=== PATIENT | male | born 1955 | race Caucasian/White ===

== ENCOUNTER 2024-05-30 06:35 | Outpatient (CLI) | payer MEDICARE, BC, SELFPAY | END 2024-05-30 06:36 | disposition home or self-care (01) | LOC: INJ CL 06:39 | PROVIDERS: PCP Family Medicine; Visit Provider Family Medicine | DX: M54.16 Radiculopathy, lumbar region (principal); M51.36 Other intervertebral disc degeneration, lumbar region | CPT/HCPCS: 62323; J0702; Q9966 ==

== ENCOUNTER 2024-11-18 09:46 | Outpatient (CLI) | payer MEDICARE, BC, SELFPAY ==
--- OUTSIDE RECORDS SUMMARY | 2024-11-13 11:37 | XMS_ITS | Encounter Summary ---
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 This section includes the names of all active insurance providers for the patient. Insurance Provider Type of Coverage Plan Name Start of Policy Coverage End of Policy Coverage Group Number Member ID Insurance Provider's Telephone Number Policy Britton's Name Patient's Relationship to Policy Britton [facility] (WNR) MEDICARE ADVANTAGE [facility] (WNR) Sep 12, 2014 [id number] [phone] Adam BHATTI PATIENT Selected Encounter This section includes the information on record at NH for the Encounter. Date/Time Encounter Type Encounter Description Reason Pro vider Source Jun 12, 2024 03:33 PM Outpatient Encounter COMMUNITY CARE CONSULT IHE Encounter Template Text not used by NH Social History: Smoking Status (Most current) and Tobacco Use (All prior to encounter date) This section includes the most current, and the historical, smoking and tobacco- related health factors from the NH facility where the Encounter took place. Current Smoking Status This section includes the most current smoking, or tobacco-related health factor, from the NH facility where the Encounter took place. Date/Time Current Smoking Status Comment Billy gonzalez Jan 08, 2024 10:00 AM VA-TOBACCO USE DECLINED TO ANSWE R [facility] Tobacco Use History This section includes a history of the smoking, or tobacco-related health factors, that were collected on or before the date of the Encounter. The data comes from the [place] facility where the Encounter took place. Date/Time Smoking Status/Tobacco Use Comment F acility Jan 09, 2023 10:30 AM VA-TOBACCO USE DECLINED TO ANSWE R [facility] Jan 05, 2022 02:00 PM VA-TOBACCO USE > 1 5 LESS THAN 30 YEARS [facility] Jan 05, 2022 02:00 PM VA-TOBACCO USE ADVICE [facility] Jan 05, 2022 02:00 PM VA-TOBACCO USE HEALTH COACH NO [facility] Jan 05, 2022 02:00 PM VA-TOBACCO USE MED NO [facility] Jan 05, 2022 02:00 PM VA-TOBACCO USE WI 30 MIN OF WAKE UP [facility] Jan 05, 2022 02:00 PM VA-TOBACCO USER EVERY DAY [facility] Dec 29, 2020 10:00 AM VA-TOBACCO USE > 1 5 LESS THAN 30 YEARS [facility] Dec 29, 2020 10:00 AM VA-TOBACCO USE ADVICE [facility] Dec 29, 2020 10:00 AM VA-TOBACCO USE HEALTH COACH YES [facility] Dec 29, 2020 10:00 AM VA-TOBACCO USE MED NO [facility] Dec 29, 2020 10:00 AM VA-TOBACCO USE WI 30 MIN OF WAKE UP [facility] Dec 29, 2020 10:00 AM VA-TOBACCO USER EVERY DAY [facility] Dec 09, 2019 08:18 AM VA-TOBACCO USE 30 YEARS OR MORE [facility] Dec 09, 2019 08:18 AM VA-TOBACCO USE ADVICE [facility] Dec 09, 2019 08:18 AM VA-TOBACCO USE HEALTH COACH NO [facility] Dec 09, 2019 08:18 AM VA-TOBACCO USE MED NO [facility] Dec 09, 2019 08:18 AM VA-TOBACCO USE WI 30 MIN OF WAKE UP [facility] Dec 09, 2019 08:18 AM VA-TOBACCO USER EVERY DAY [facility] Dec 09, 2018 08:24 AM VA-TOBACCO USE 30 YEARS OR MORE [facility] Dec 09, 2018 08:24 AM VA-TOBACCO USE ADVICE [facility] Dec 09, 2018 08:24 AM VA-TOBACCO USE HEALTH COACH NO [facility] Dec 09, 2018 08:24 AM VA-TOBACCO USE MED NO [facility] Dec 09, 2018 08:24 AM VA-TOBACCO USE WI 30 MIN OF WAKE UP [facility] Dec 09, 2018 08:24 AM VA-TOBACCO USER EVERY DAY [facility] Dec 11, 2017 09:35 AM CURRENT TOBACCO USER [facility] Nov 22, 2016 12:56 PM CURRENT TOBACCO USER [facility] Oct 29, 2015 09:51 AM CURRENT TOBACCO USER [facility] Oct 14, 2014 10:11 AM CURRENT TOBACCO USER [facility] Sep 16, 2013 09:06 AM CURRENT TOBACCO USER [facility] Oct 18, 2012 01:06 PM CURRENT TOBACCO USER [facility] Sep 04, 2011 08:22 AM CURRENT TOBACCO USER [facility] Encounter Notes: All associated encounter notes This section contains the clinical notes associated to the Encounter. Date/Time Encounter Note(s) Provider Source Jun 12, 2024 03:33 PM PHARMACY NOTE: LOCAL TITLE: PHARMACY NON [facility] CARE MEDICATIONS STANDARD TITLE: PHARMACY NOTE DATE OF NOTE: JUN 12, 2024@15:33 ENTRY DATE: JUN 12, 2024@15:34:04 AUTHOR: JOLANTA RUIZ EXP COSIGNER: URGENCY: STATUS: COMPLETED [facility] RECEIVED electronic prescription(s) (eRX(s)) from NON-[facility] Provider:JOE STEWART Date eRX received: Jun Outside (NON-VA) provider not authorized to write for prescription(s) through [place] pharmacy. Prescription request REDIRECTED via FAX to one of the following for review: [X][facility] (Dual) Care [ ]Other: eRx Prescription Information: [id number] eRx Drug: gabapentin 300 mg capsule (NEURONTIN) eRx Qty: 90 eRx Refills: 3 Take 1 Capsule (300 mg) by mouth at bedtime /carmina/ JOLANTA RUIZ PHARMACIST Signed: 06/12/2024 15:34 JOLANTA RUIZ [facility]
--- OUTSIDE RECORDS SUMMARY | 2024-11-13 11:37 | XMS_ITS | Continuity of Care Document ---
Author Name [facility] Organization [facility] Care Team Providers Care Commission Associate Name Role Phone [facility] Unavailable Unavailable Problems Combined list of problems from [facility] and [facility] facilities. It does not include entries that were removed or entered in error. Problem Status Onset Date Problem Type Date of Resolution Comments Source Alcohol abuse Active Condition [facility] Benign essential hypertension Active Condition [facility] Cervical spondylosis without myelopathy (ICD-9-CM 721.0) Active Condition [facility] Chronic neck pain Active [facility] Claudication Active Condition [facility] Depression (SN[place]ED [facility] 59777072) Active Condition [facility] Dyssomnia NOS * (ICD-9-CM 307.47/780.50) Active Condition [facility] Fungal infection of nail Active Condition [facility] Hyperlipidemia (SNOMED CT 44176101) Active Condition [facility] MDD, Recurr, moderate Active Condition [facility] PAD - Peripheral arterial disease Active Condition [facility] Tobacco use (SNOMED CT 339018095) Active Condition [facility] Diagnosis: ICD-10-CM Z00.01 Encounter for general adult medical exam w abnormal findings Active Diagnosis [facility] Medications Combined list of outpatient medications from [facility] and [facility] facilities.Medications provided include 1) outpatient medications from the last 15 months, and 2) patient-reported medications. Medication Details Route Status Patient Instructions Prescription Expires Prescription Number Last Dispense Date Ordering Provider Order Date Order Qty Source ATORVASTATI N CA 80MG TAB TAKE ONE TABLET BY MOUTH AT BEDTIME FOR CHOLESTE ROL ORAL ACTIVE 03/06/2025 [id number] WHIT RODRÍGUEZ 2023 90 [facility] ATORVASTATI N CA 80MG TAB TAKE ONE TABLET BY MOUTH AT BEDTIME FOR CHOLESTE ROL FOR CHOLESTE ROL*NOTE CHANGE IN TABLET STRENGTH * ORAL DISCONT INUED 02/23/2024 [id number] WHIT RODRÍGUEZ Adam H 2022 90 [facility] DICLOFENAC NA 1% GEL,TOP APPLY 2 GRAMS TOPICALL Y FOUR TIMES A DAY NEEDED TO AFFECTED AREA FOR PAIN FOR PAIN USE DOSE CARD IN BOX TO MEASURE DOSEMA X 32 GM PER DAY TOPICA L ACTIVE 08/09/2025 [id number] 4 WHIT RODRÍGUEZ H [address] [facility] DICLOFENAC NA 1% GEL,TOP APPLY 2 GRAMS FOUR TIMES A DAY NEEDED FOR PAIN USE DOSE CARD IN BOX TO MEASURE DOSEMA X 32 GM PER DAY TOPICA L 01/10/2024 [id number] 4 RODRÍGUEZ,WHIT Hanson 2022 100 [facility] GABAPENTIN 300MG CAP TAKE ONE CAPSULE BY MOUTH AT BEDTIME FOR PAIN AND NUMBNESS ORAL ACTIVE 06/14/2025 [id number] 4 RODRÍGUEZWHIT 2023 90 [facility] LISINOPRIL 20MG TAB TAKE ONE TABLET BY MOUTH EVERY DAY FOR BLOOD PRESSURE *NOTE CHANGE IN TABLET STRENGTH * ORAL ACTIVE 01/08/2025 [id number] RODRÍGUEZ,WHIT Hanson 2023 90 [facility] LISINOPRIL 20MG TAB TAKE ONE TABLET BY MOUTH EVERY DAY FOR BLOOD PRESSURE *NOTE CHANGE IN TABLET STRENGTH * ORAL DISCONT INUED 01/10/2024 [id number] 4 RODRÍGUEZWHIT 2022 90 [facility] SILDENAFIL CITRATE 100MG TAB TAKE ONE TABLET BY MOUTH NEEDED FOR ERECTILE DYSFUNCT ION 1 HOUR BEFORE ANTICIPA BIRDIE SEXUAL ACTIVITY --MAXIMU M 6 DOSES FOR 30-DAY SUPPLY ORAL 02/14/2024 [id number] 4 WHIT RODRÍGUEZ 2022 6 [facility] Immunizations Combined list of available immunizations from the Department of Defense and Veterans Affairs facilities. Immunization Series Date Given Administered By Site Reaction Lot Number CVX Code Drug Cash Posting Specialist Status Comments Source PNEUMOCOCCAL CONJUGATE PCV20, POLYSACCHARID E [id number] CONJUGATE, ADJUVANT, PF 2022 [facility] N A LEFT DELTO ID [id number] 216 complet ed [facility] COVID-19 (MODERNA), MRNA, LNP-S, BIVALENT BOOSTER, PF, 50 MCG/0.5 ML OR 25MCG/0.25 ML DOSE 1 2021 229 complet ed [facility] INFLUENZA, UNSPECIFIED FORMULATION 2021 88 complet ed [facility] COVID-19 (PFIZER), MRNA, LNP-S, PF, 30 MCG/0.3 ML DOSE 4 2021 208 complet ed [facility] TDAP 2021 115 complet ed [facility] COVID-19 (PFIZER), MRNA, LNP-S, PF, 30 MCG/0.3 ML DOSE 3 2020 208 complet ed [facility] INFLUENZA, UNSPECIFIED FORMULATION 2020 88 complet ed [facility] PNEUMOCOCCAL POLYSACCHARID E PPV23 2020 33 complet ed [facility] COVID-19 (PFIZER), MRNA, LNP-S, PF, 30 MCG/0.3 ML DOSE 2 2020 208 complet ed PFR; [id number]; 1 [facility] COVID-19 (PFIZER), MRNA, LNP-S, PF, 30 MCG/0.3 ML DOSE 1 2020 208 complet ed PFR; [id number]; 1 [facility] INFLUENZA, UNSPECIFIED FORMULATION 2019 88 complet ed [facility] ZOSTER RECOMBINANT 2 2019 187 complet ed [facility] ZOSTER RECOMBINANT 1 2019 187 complet ed [facility] INFLUENZA, SEASONAL, INJECTABLE 2018 141 complet ed [facility] INFLUENZA, SEASONAL, INJECTABLE 2018 141 complet ed [facility] INFLUENZA, SEASONAL, INJECTABLE 2016 141 complet ed [facility] INFLUENZA, SEASONAL, INJECTABLE, PRESERVATIVE FREE 2016 140 complet ed [facility] INFLUENZA, SEASONAL, INJECTABLE, PRESERVATIVE FREE 2014 140 complet ed [facility] INFLUENZA, UNSPECIFIED FORMULATION 2013 88 complet ed [facility] INFLUENZA, UNSPECIFIED FORMULATION 2012 88 complet ed [facility] PNEUMOCOCCAL, UNSPECIFIED FORMULATION 2012 109 complet ed [employer] [id number] [facility] INFLUENZA, UNSPECIFIED FORMULATION 2011 88 complet ed [facility] TDAP 2010 115 complet ed aaaaa [facility] Results Combined list of recent chemistry, hematology and other laboratory results from Department of Defense and Veterans Affairs, ranging from 15 months to all on record, depending upon the facility. Order Name Results Value Reference Range Date Interpretation Specimen Comments Source LIVER FUNCTION TESTS BILIRUBIN.T OTAL [MASS/VOLUM E] IN SERUM OR PLASMA 0.8 mg/dL 0.2 - 1.2 01/08 Specimen Type: PLASMA No comment entered. Ordering Provider: SAPNA RODRÍGUEZ Report Released Date/Time: Jan 08, 2024 10:33 AM Reporting Lab: [facility] [phone] Performing Lab: [facility] [phone] [facility] LIVER FUNCTION TESTS ALKALINE PHOSPHATASE [ENZYMATIC ACTIVITY/VO LUME] IN SERUM OR PLASMA 93 U/L 40 - 150 01/08 Specimen Type: PLASMA No comment entered. Ordering Provider: SAPNA RODRÍGUEZ Report Released Date/Time: Jan 08, 2024 10:33 AM Reporting Lab: [facility] [phone] Performing Lab: [facility] [phone] [facility] LIVER FUNCTION TESTS ALANINE AMINOTRANSF ERASE [ENZYMATIC ACTIVITY/VO LUME] IN SERUM OR PLASMA 18 U/L <55 - 55 01/08 Specimen Type: PLASMA No comment entered. Ordering Provider: SAPNA RODRÍGUEZ Report Released Date/Time: Jan 08, 2024 10:33 AM Reporting Lab: [facility] [phone] Performing Lab: [facility] [phone] [place] [facility] LIVER FUNCTION TESTS ASPARTATE AMINOTRANSF ERASE [ENZYMATIC ACTIVITY/VO LUME] IN SERUM OR PLASMA 20 U/L <34 - 34 01/08 Specimen Type: PLASMA No comment entered. Ordering Provider: SAPNA RODRÍGUEZ Report Released Date/Time: Jan 08, 2024 10:33 AM Reporting Lab: [facility] [phone] Performing Lab: [facility] [phone] [facility] LIVER FUNCTION TESTS GAMMA GLUTAMYL TRANSFERASE [ENZYMATIC ACTIVITY/VO LUME] IN SERUM OR PLASMA 44 U/L <64 - 64 01/08 Specimen Type: PLASMA No comment entered. Ordering Provider: SAPNA RODRÍGUEZ Report Released Date/Time: Jan 08, 2024 10:33 AM Reporting Lab: [facility] [phone] Performing Lab: [facility] [phone] [facility] Vital Signs Combined list of inpatient and outpatient Vital Signs from Department of Defense and Veterans Affairs, ranging from 12 months to all on record, depending upon the facility. Vital Sign Value Date Comments Source SYSTOLIC BLOOD PRESSURE 134 01/08/2024 09:55:45 [facility] DIASTOLIC BLOOD PRESSURE 75 01/08/2024 09:55:45 [facility] PULSE OXIMETRY 97 01/08/2024 09:55:45 [place] [facility] WEIGHT 198.6 01/08/2024 09:55:45 [facility] BMI 26kg/m2 01/08/2024 09:55:45 [facility] PAIN 4 01/08/2024 09:55:45 [facility] HEIGHT 73 01/08/2024 09:55:45 [facility] TEMPERATURE 97.7 01/08/2024 09:55:45 [facility] PULSE 70 01/08/2024 09:55:45 [facility] RESPIRATION 16 01/08/2024 09:55:45 [facility] Encounters Combined list of: 1) Encounters from Department of Veterans Affairs facilities going back up to thelast 18 months. 2) Encounters from the Department of Defense facilities going back up to 280 months. Location Location Details Encounter Type Encounter Number Reason For Visit Attending Provider ADM Date DC Date Status Disposition Source [facility] Outpatient Encounter [id number] 12/18 [facility] [place] [facility] Outpatient Encounter [id number] 01/08 [facility] [place] [facility] OFF[facility] O/P EST LOW 20 MIN [id number] Diagnos is: ICD-10- CM Z00.01 Encount er for general adult medical exam w abnorma l finding s
SAPNA RODRÍGUEZ H 01/08 [facility] [place] [facility] Outpatient Encounter [id number] 05/26 [facility] [place] [facility] Outpatient Encounter [id number] 06/[address] [facility] [place] [facility] Outpatient Encounter [id number] 06/12 [facility] [place] [facility] Outpatient Encounter [id number] 06/13 [facility] Social History Combined list of available smoking, tobacco, and other social history from Department of Defense and [facility] Affairs facilities. Social History Type Response Date Comment Sourc e Tobacco smoking status UTIS PR-TOBACCO USE DECLINED TO ANSWER 01/08/2024 [facility] History of tobacco use PR-TOBACCO USE DE CLINED TO ANSWER 01/09/2023 [facility] History of tobacco use PR-TOBACCO USER E VERY DAY 01/05/2022 [facility] History of tobacco use PR-TOBACCO USER E VERY DAY 12/29/2020 [facility] History of tobacco use PR-TOBACCO USE CO UNSEL NO 12/09/2019 [facility] History of tobacco use PR-TOBACCO USE WI 30 MIN OF WAKEUP 12/09/2018 [facility] History of tobacco use CURRENT TOBACCO USER 12/11/2017 [facility] History of tobacco use CURRENT TOBACCO USER 11/22/2016 [facility] History of tobacco use CURRENT TOBACCO USER 10/29/2015 [facility] History of tobacco use CURRENT TOBACCO USER 10/14/2014 [facility] History of tobacco use CURRENT TOBACCO USER 09/16/2013 [facility] History of tobacco use CURRENT TOBACCO USER 10/18/2012 [facility] History of tobacco use CURRENT TOBACCO USER 09/04/2011 [facility]
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
--- OUTSIDE RECORDS SUMMARY | 2024-11-13 11:37 | XMS_ITS | Encounter Summary ---
Author Name [facility] Organization [facility] Address [address] [place] [id number] Care Team Providers Care Horticultural Farmworker Name Role Phone RODRÍGUEZ, SAPNA Primary Care [...] Britton's Name Patient's Relationship to Policy Britton [facility] (WNR) MEDICARE ADVANTAGE [facility] (WNR) Sep 12, 2014 [id number] [phone] Adam BHATTI PATIENT Selected Encounter This section includes the information on record at ID for the Encounter. Date/Time Encounter Type Encounter Description Reason Pro vider Source May 26, 2024 12:29 PM Outpatient Encounter COMMUNITY CARE CONSULT IHE Encounter Template Text not used by ID Social History: Smoking Status (Most current) and Tobacco Use (All prior to encounter date) This section includes the most current, and the historical, smoking and tobacco- related health factors from the ID facility where the Encounter took place. Current Smoking Status This section includes the most current smoking, or tobacco-related health factor, from the ID facility where the Encounter took place. Date/Time Current Smoking Status Comment Billy gonzalez Jan 08, 2024 10:00 AM VA-TOBACCO USE DECLINED TO ANSWE R [facility] Tobacco Use History This section includes a history of the smoking, or tobacco-related health factors, that were collected on or before the date of the Encounter. The data comes from the ID facility where the Encounter took place. Date/Time Smoking Status/Tobacco Use Comment F acility Jan 09, 2023 10:30 AM VA-TOBACCO USE DECLINED TO ANSWE R [facility] Jan 05, 2022 02:00 PM VA-TOBACCO USE > 1 5 LESS THAN 30 YEARS [facility] Jan 05, 2022 02:00 PM VA-TOBACCO USE ADVICE [facility] Jan 05, 2022 02:00 PM VA-TOBACCO USE HAND SEWER NO [facility] Jan 05, 2022 02:00 PM VA-TOBACCO USE MED NO [facility] Jan 05, 2022 02:00 PM VA-TOBACCO USE WI 30 MIN OF WAKE UP [facility] Jan 05, 2022 02:00 PM VA-TOBACCO USER EVERY DAY [facility] Dec 29, 2020 10:00 AM VA-TOBACCO USE > 1 5 LESS THAN 30 YEARS [facility] Dec 29, 2020 10:00 AM VA-TOBACCO USE ADVICE [facility] Dec 29, 2020 10:00 AM VA-TOBACCO USE HAND SEWER YES [facility] Dec 29, 2020 10:00 AM VA-TOBACCO USE MED NO [facility] Dec 29, 2020 10:00 AM VA-TOBACCO USE WI 30 MIN OF WAKE UP [facility] Dec 29, 2020 10:00 AM VA-TOBACCO USER EVERY DAY [facility] Dec 09, 2019 08:18 AM VA-TOBACCO USE 30 YEARS OR MORE [facility] Dec 09, 2019 08:18 AM VA-TOBACCO USE ADVICE [facility] Dec 09, 2019 08:18 AM VA-TOBACCO USE HAND SEWER NO [facility] Dec 09, 2019 08:18 AM VA-TOBACCO USE MED NO [facility] Dec 09, 2019 08:18 AM VA-TOBACCO USE WI 30 MIN OF WAKE UP [facility] Dec 09, 2019 08:18 AM VA-TOBACCO USER EVERY DAY [facility] Dec 09, 2018 08:24 AM VA-TOBACCO USE 30 YEARS OR MORE [facility] Dec 09, 2018 08:24 AM VA-TOBACCO USE ADVICE [facility] Dec 09, 2018 08:24 AM VA-TOBACCO USE HAND SEWER NO [facility] Dec 09, 2018 08:24 AM VA-TOBACCO USE MED NO [facility] Dec 09, 2018 08:24 AM VA-TOBACCO USE WI 30 MIN OF WAKE UP [facility] Dec 09, 2018 08:24 AM VA-TOBACCO USER EVERY DAY [facility] Dec 11, 2017 09:35 AM CURRENT TOBACCO USER [facility] Nov 22, 2016 12:56 PM CURRENT TOBACCO USER [facility] Oct 29, 2015 09:51 AM CURRENT TOBACCO USER [facility] Oct 14, 2014 10:11 AM CURRENT TOBACCO USER [facility] Sep 16, 2013 09:06 AM CURRENT TOBACCO USER [facility] Oct 18, 2012 01:06 PM CURRENT TOBACCO USER [facility] Sep 04, 2011 08:22 AM CURRENT TOBACCO USER [facility] Encounter Notes: All associated encounter notes This section contains the clinical notes associated to the Encounter. Date/Time Encounter Note(s) Provider Source May 26, 2024 12:29 PM PHARMACY NOTE: LOCAL TITLE: PHARMACY NON ID CARE MEDICATIONS STANDARD TITLE: PHARMACY NOTE DATE OF NOTE: MAY 26, 2024@12:29 ENTRY DATE: MAY 26, 2024@12:29:36 AUTHOR: KING ARROYO EXP COSIGNER: URGENCY: STATUS: COMPLETED [facility] RECEIVED electronic prescription(s) (eRX(s))from NON- VA Provider: ADRIANA HERRERA Date eRX received: May The outside (NON-VA) provider is not authorized to write for prescription(s) through ID pharmacy at this time. Prescription request REDIRECTED via FAX to [facility] department eRx Reference #: [id number] eRx Prescription Information: eRx Drug: gabapentin 300 mg capsule (NEURONTIN) eRx Qty: 30 eRx Refills: 3 eRx Days Supply: eRx Written Date: MAY 26, 2024 eRx Issue Date: Prohibit Renewals: No eRx Sig: Take 1 Capsule (300 mg) by mouth at bedtime. /carmina/ KING ARROYO Pharmacist Signed: 05/26/2024 12:29 KING ARROYO [facility]
--- OUTSIDE RECORDS SUMMARY | 2024-11-13 11:37 | XMS_ITS | Encounter Summary ---
Author Name [facility] Organization [facility] [place] [place] Address [address] [place] [address] Care Team Providers Care Cash Management Officer Name Role Phone RODRÍGUEZ, SAPNA Primary Care [...] Britton's Name Patient's Relationship to Policy Britton [facility] (WNR) MEDICARE ADVANTAGE [facility] (WNR) Sep 12, 2014 [id number] [phone] Adam BHATTI PATIENT Selected Encounter This section includes the information on record at [place] for the Encounter. Date/Time Encounter Type Encounter Description Reason Pro vider Source Dec 18, 2023 03:37 PM Outpatient Encounter COMMUNITY CARE CONSULT IHE Encounter Template Text not used by VA Plan of Treatment: Future Appointments (+ 6 months) and Future Tests (+/- 45 days) The Plan of Treatment section includes future care activities for the patient from all VA treatmentfacilities. This section includes future appointments and future orders which are active, pending or scheduled. Future Appointments This section includes appointments that were scheduled to occur 6 months from the date of the Encounter, up to a maximum of 20 appointments. The data comes from all [place] treatment facilities. Appointment Date/Time Appointment Type Appointme nt Facility Name Jan 08, 2024 10:00 AM AMBULATORY - MEDICINE [facility] Lab Results: +/- 30 days of the encounter This section includes the Chemistry and Hematology Lab Results on record with [place] for the patient. Radiology Reports and Pathology Reports are provided separately, in subsequent sections. Lab Results This section contains the Chemistry/Hematology Results that were resulted 30 days before or 30 daysafter the date of the Encounter. Date/Time Source Result Type Result - Unit Interpretation Reference Range Comment Jan 08, 2024 10:50 AM [facility] LIVER FUNCTION TESTS Specimen Type: PLASMA No comment entered. Ordering Provider: SAPNA RODRÍGUEZ Report Released Date/Time: Jan 08, 2024 10:33 AM Reporting Lab: [facility] [id number] Performing Lab: [facility] [id number] BILIRUBIN, TOTAL 0.8 mg/dL 0.2-1.2 ALKALINE PHOSPHATASE 93 U/L 40-150 ALT/SGPT 18 U/L <55 AST/SGOT 20 U/L <34 GAMMA GTP 44 U/L <64 Social History: Smoking Status (Most current) and Tobacco Use (All prior to encounter date) This section includes the most current, and the historical, smoking and tobacco- related health factors from the [place] facility where the Encounter took place. Current Smoking Status This section includes the most current smoking, or tobacco-related health factor, from the [place] facility where the Encounter took place. Date/Time Current Smoking Status Comment Billy gonzalez Jan 09, 2023 10:30 AM VA-TOBACCO USE DECLINED TO ANSWE R [facility] Tobacco Use History This section includes a history of the smoking, or tobacco-related health factors, that were collected on or before the date of the Encounter. The data comes from the [place] facility where the Encounter took place. Date/Time Smoking Status/Tobacco Use Comment F acility Jan 05, 2022 02:00 PM VA-TOBACCO USE > 1 5 LESS THAN 30 YEARS [facility] Jan 05, 2022 02:00 PM VA-TOBACCO USE ADVICE [facility] Jan 05, 2022 02:00 PM VA-TOBACCO USE CAREER TRANSITION SPECIALIST NO [facility] Jan 05, 2022 02:00 PM VA-TOBACCO USE MED NO [facility] Jan 05, 2022 02:00 PM VA-TOBACCO USE WI 30 MIN OF WAKE UP [facility] Jan 05, 2022 02:00 PM VA-TOBACCO USER EVERY DAY [facility] Dec 29, 2020 10:00 AM VA-TOBACCO USE > 1 5 LESS THAN 30 YEARS [facility] Dec 29, 2020 10:00 AM VA-TOBACCO USE ADVICE [facility] Dec 29, 2020 10:00 AM VA-TOBACCO USE CAREER TRANSITION SPECIALIST YES [facility] Dec 29, 2020 10:00 AM VA-TOBACCO USE MED NO [facility] Dec 29, 2020 10:00 AM VA-TOBACCO USE WI 30 MIN OF WAKE UP [facility] Dec 29, 2020 10:00 AM VA-TOBACCO USER EVERY DAY [facility] Dec 09, 2019 08:18 AM VA-TOBACCO USE 30 YEARS OR MORE [facility] Dec 09, 2019 08:18 AM VA-TOBACCO USE ADVICE [facility] Dec 09, 2019 08:18 AM VA-TOBACCO USE CAREER TRANSITION SPECIALIST NO [facility] Dec 09, 2019 08:18 AM VA-TOBACCO USE MED NO [facility] Dec 09, 2019 08:18 AM VA-TOBACCO USE WI 30 MIN OF WAKE UP [facility] Dec 09, 2019 08:18 AM VA-TOBACCO USER EVERY DAY [facility] Dec 09, 2018 08:24 AM VA-TOBACCO USE 30 YEARS OR MORE [facility] Dec 09, 2018 08:24 AM VA-TOBACCO USE ADVICE [facility] Dec 09, 2018 08:24 AM VA-TOBACCO USE CAREER TRANSITION SPECIALIST NO [facility] Dec 09, 2018 08:24 AM VA-TOBACCO USE MED NO [facility] Dec 09, 2018 08:24 AM VA-TOBACCO USE WI 30 MIN OF WAKE UP [facility] Dec 09, 2018 08:24 AM VA-TOBACCO USER EVERY DAY [facility] Dec 11, 2017 09:35 AM CURRENT TOBACCO USER [facility] Nov 22, 2016 12:56 PM CURRENT TOBACCO USER [facility] Oct 29, 2015 09:51 AM CURRENT TOBACCO USER [facility] Oct 14, 2014 10:11 AM CURRENT TOBACCO USER [facility] Sep 16, 2013 09:06 AM CURRENT TOBACCO USER [facility] Oct 18, 2012 01:06 PM CURRENT TOBACCO USER [facility] Sep 04, 2011 08:22 AM CURRENT TOBACCO USER [facility] Encounter Notes: All associated encounter notes This section contains the clinical notes associated to the Encounter. Date/Time Encounter Note(s) Provider Source Dec 18, 2023 03:37 PM PHARMACY NOTE: LOCAL TITLE: PHARMACY NON VA CARE MEDICATIONS STANDARD TITLE: PHARMACY NOTE DATE OF NOTE: DEC 18, 2023@15:37 ENTRY DATE: DEC 18, 2023@15:37:30 AUTHOR: MOISE LANG COSIGNER: URGENCY: STATUS: COMPLETED from NON-[place] Provider: Date eRX received: DEC 18, 2023 Outside (NON-VA) provider not authorized to write for prescription(s) through [place] pharmacy. Prescription request REDIRECTED via FAX to one of the following for review: [X][facility] [ ]Other: eRx Prescription Information: diclofenac 1 % topica atorvastatin 80 mg ta lisinopriL 20 mg tabl sildenafiL 100 mg tab /es/ MOISE LANG Pharmacist Signed: 12/18/2023 15:38 MOISE LANG [facility]
--- OUTSIDE RECORDS SUMMARY | 2024-11-13 11:37 | XMS_ITS | Clinical Summary ---
Author Organization [facility] Address [place], [place] [address] Care Team Providers Care Oxygen Equipment Preparer Name Role Phone MichaelteOsmani escoto MD Primary Care Provider + Allergies No known active allergies Medications diclofenac topical (VOLTAREN) 1 % gelIndications:Ar thritis APPLY 2 GRAMS FOUR TIMES A DAY NEEDED FOR PAIN USE DOSE CARD IN BOX TO MEASURE DOSEMAX 32 GM PER DAY Strength: 1 % 80 g 11 12/18/19 24 Active atorvastatin (LIPITOR) 80 mg tabletIndications :PVD (peripheral vascular disease) (HC) Take 1 Tablet (80 mg) by mouth at bedtime. 90 Tablet 3 12/18/19 24 Active lisinopriL (PRINIVIL; ZESTRIL) 20 mg tabletIndications :HTN (hypertension) Take 1 Tablet (20 mg) by mouth once daily. 90 Tablet 3 12/18/19 24 Active sildenafil citrate (Viagra) 100 mg tabletIndications :Impotence of organic origin Take 30min to 4 hours before sexual activity. Max 100mg/24hr.TAKE 1/2 TO 1 TABLET BY MOUTH EVERY DAY NEEDED APPROXIMATELY ONE HOUR BEFORE SEXUAL ACTIVITY 15 Tablet 5 12/18/19 24 Active gabapentin (NEURONTIN) 300 mg capsuleIndication s:Lumbar radiculopathy Take 1 Capsule (300 mg) by mouth at bedtime. 90 Capsule 3 06/12/20 24 Active Active Problems Problem Noted Date Diagnosed Date History of colon polyps 04/03/2023 Overview (04/03/2023): Colonoscopy 03/2023 hyperplastic polyps, repeat in 5 years Peripheral vascular disease 01/15/2018 Tobacco use 11/08/2017 Cervical spondylosis 01/13/2009 Chronic neck pain 11/16/2008 Resolved Problems Problem Noted Date Diagnosed Date Resolved Date Moderate episode of recurren t major depressive disorder 12/14/2020 12/15/2021 Major depressive disorder, s trever episode, unspecified 09/25/2010 11/08/2017 Encounters Date Type Department Care Team Description 08/22/2024 9:55 AM CDT Nurse/Clinic Staff Only [facility] [address] [place] [address] Immunization/Injection 08/22/2024 Travel from Last 3 Months Immunizations Name Administration Dates Next Due AMB Influenza, IIV4 PF (=>6 mos Flulaval,Fluzone Fluarix)(Flu Clinic Only) 10/08/2019,10/03/2019 Amb Influenza, Inactivated A IIV4 (Age 65+ Years) Preserv Free 08/03/2020 COVID-19 VACCINE SPIKEVAX (M ODERNA 50MCG/0.5ML) 12YO+ PFS 08/22/2024,09/28/2023 COVID-19 vaccine (Moderna 50mcg/0.5mL) 12YO+ BIVALENT PF, MDV 09/18/2022 COVID-19 vaccine (Pfizer-Bio NTech 30mcg/0.3mL) 12YO+ BIVALENT PF, MDV 09/18/2022 COVID-19 vaccine (Pfizer-Bio NTech 30mcg/0.3mL) 12YO+ ELIU-SUCROSE PF, MDV 06/07/2022 COVID-19 vaccine (Pfizer-Bio NTech 30mcg/0.3mL) PF, MDV 06/07/2022,08/10/2021,12/25/2020,2020 Influenza Virus, Unspecified 09/18/2022, 08/03/2020,10/14/2014,2012,10/18/2012 Influenza, IIV4 11/19/2018,11/08/2017,10/16/2014 Influenza, Inactivated AIIV4 (Age 65+ Years) Preserv Free 09/28/2023,09/18/2022,08/10/2021 Influenza, Inactivated IIV3 (Age 65+ Years) Preserv Free 08/22/2024 Pneumococcal Conj 20-valent (Prevnar 20) 01/09/2023 Pneumococcal Poly,23-Valent (Pneumovax) 01/25/2021,10/14/2012 Pneumococcal, Unspecified 09/16/2013 Tdap 01/06/2022,09/04/2011 Zoster (Shingrix-RZV, recombinant) 2020, Family History Medical History Relation Name Comments Cancer Father esophagus Heart Disease Father Cancer-breast Mother Relation Name Status Comments Father Mother Social History Tobacco Use Types Packs/Day Years Used Date Smoking Tobacco: Every Day Cigarettes 1 41.6 Started: 04/19/1983 Smokeless Tobacco: Never Tobacco Cessation:Ready to Q uit: No; Counseling Given: Yes Alcohol Use Standard Drinks/Week Comments Yes 0 (1 standard drink = 0.6 oz pur e alcohol) 24 drinks per week PHQ-2 Answer Date Recorded PHQ-2 TOTAL SCORE 0 12/18/2023 Social Connections Answer Date Recorded Frequency of Communication with Friends and Fami ly Not on file 12/14/2023 Financial Resource Strain Answer Date R ecorded Difficulty of Paying Living Expenses 3 12/13/2022 Difficulty of Paying Living Expenses Not on file 12/13/2022 Food Insecurity Answer Date Recorded Worried About Running Out of Food in the Last Ye ar 1 12/13/2022 Transportation Needs Answer Date Record ed Lack of Transportation (Medical) 1 12/13/2022 Housing Stability Answer Date Recorded Unable to Pay for Housing in the Last Year 1 12/13/2022 Sex and Gender Information Value Date Recorded Sex Assigned at Not on file Legal 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 Gender Identity Not on file Sexual Orientation Not on file Occupation Industry Job Start Date Job End Date disabled Not on file Not on file Not on file Obstetrics History Last Filed Vital Signs Vital Sign Reading Time Taken Comments Blood Pressure 112/74 05/26/2024 10:43 AM CDT Pulse 73 05/26/2024 10:43 AM CDT Temperature 36.8 C (98.2 F) 05/26/2024 10:43 AM CDT Respiratory Rate 16 05/22/2024 2:07 PM CDT Oxygen Saturation 94% 05/26/2024 10:43 AM CDT Inhaled Oxygen Concentration - - Weight 92.8 kg (204 lb 9.6 oz) 05/26/2024 10:43 AM CDT shoes on Height 182.4 cm (5' 11.81) 12/18/2023 1:[address] Body Mass Index 27.9 12/18/2023 1:39 PM BALLAST CLEANING MACHINE OPERATOR Plan of Treatment Upcoming Encounters Date Type Department Care Team (Late st Contact Info) Description 11/18/2024 10:40 AM BALLAST CLEANING MACHINE OPERATOR Office Visit [facility] at [facility] [address] [place] [address] Eze Echeverria MD [address] [place] [address] Health Maintenance Due Date Last Done Comments Low Dose CT (for lung CA) ag e 50-80 02/03/2022 02/03/2021 BMI (ht and wt on same day) for age 18+ 12/18/2024 12/18/2023, 04/19/2023, 01/10/2023, Additional history exists Depression screening for age 12+ 12/18/2024 12/18/2023, 12/13/2022, 12/13/2022, Additional history exists Medicare Wellness for age 65+ 12/18/2024, 12/18/2023, 12/13/2022, Additional history exists Colonoscopy through age 75 03/30/202803/30, 03/30/2023, 03/30/2023, Additional history exists Lipids for age 45-75 12/11/2028 12/11/2023, 04/12/2023, 12/06/2022, Additional history exists RSV vaccine for adults or (1 - 1-dose 75+ series) 2030 Tetanus booster 01/06/2032 01/06/2022, 09/04/2011 Hepatitis C screening for ag e 18-79 Completed 08/04/2016 Zoster (shingles) series for age 50+ Completed 2020, 01/07/2020 AAA screening age 65-74 Completed 02/03/2021 Tdap Completed 01/06/2022, 09/04/2011 Pneumococcal series for age 50+ Completed 01/09/2023, 01/25/2021, 09/16/2013, Additional history exists COVID-19 vaccine series Completed 08/22/20, 09/28/2023, 09/18/2022, Additional history exists Influenza for age 65+ Completed 08/22/2024 , 09/28/2023, 09/18/2022, Additional history exists Procedures Procedure Name Priority Date/Time Associated Diagnosis Comments LIPID PANEL W REFLEX MEASURED LDL Routine 12/11/2023 8:38 AM BALLAST CLEANING MACHINE OPERATOR Hyperlipidemia, unspecified hyperlipidemia type COLONOSCOPY SCREENING Routine 03/30/2023 7:46 AM CDT History of colon polyps CT ABDOMEN PELVIS WO Routine 02/03/2021 9:48 AM CDT Screening for AAA (abdominal aortic aneurysm) CT CHEST LOW DOSE WO CONTRAST Routine 02/03/2021 9:47 AM CDT Encounter for screening for lung cancer ANTI HCV Routine 08/04/2016 12:54 PM CDT Elevated LFTs from Last 3 Months or Most Recently Relevant to Health Maintenance Results * LIPID PANEL W REFLEX MEASURED LDL (12/11/2023 8:38 AM BALLAST CLEANING MACHINE OPERATOR) CHOLESTEROL,TOTAL 137 100 - 199 mg/dL 12/11/2023 6:01 PM BALLAST CLEANING MACHINE OPERATOR [facility] Comment: Cholesterol, Total Reference Ranges Desirable <200 mg/dL Borderline 200-239 mg/dL High >=240 mg/dL TRIGLYCERIDES 98 <150 mg/dL 12/11/2023 6:01 PM BALLAST CLEANING MACHINE OPERATOR [facility] [employer] [facility] HDL CHOLESTEROL 47 >40 mg/dL 6:01 PM BALLAST CLEANING MACHINE OPERATOR [facility] NON-HDL CHOLESTEROL 90 <145 mg/dl 12/11/2023 6:01 PM BALLAST CLEANING MACHINE OPERATOR [facility] CHOL/HDL RATIO 2.91 <4.50 12/11/2023 6:01 PM BALLAST CLEANING MACHINE OPERATOR [facility] LDL CHOLESTEROL 70 <=130 mg/dL 12/11/2023 6:01 PM BALLAST CLEANING MACHINE OPERATOR [facility] VLDL CHOLESTEROL 20 <=30 mg/dL 12/11/2023 6:01 PM BALLAST CLEANING MACHINE OPERATOR [facility] PROVIDER ORDERED STATUS RANDOM 12/11/2023 6:01 PM BALLAST CLEANING MACHINE OPERATOR [facility] Blood BLOOD SPECIMEN / Unknown Venipuncture / Unknown 12/11/2023 8:38 AM BALLAST CLEANING MACHINE OPERATOR 12/11/2023 8:42 AM BALLAST CLEANING MACHINE OPERATOR us Osmani Redman MD CHEMISTRY Final Re sult [facility] [address] [place] [address], [place] * COLONOSCOPY (03/30/2023 7:55 AM CDT) 03/30/2023 7:55 AM CDT Narrative Transcriptions Amadeo Moreno MD - 03/30/2023 9:32 AM CDT Patient Name: Tommie Tejada Procedure Date: 03/30/2023 Gender: Male Date of : 1955 Admit Type: Outpatient Procedure: Colonoscopy Proceduralist: Amadeo Moreno MD , Rufina Mejía RN (Nurse), Kim Tran (Nurse) Referring MD: Osmani R. Votel Indications/Pre-Op Diagnosis: High risk colon cancer surveillance:Personal history of colonic polyps, Last colonoscopy: January 2018 Medications: Fentanyl 100 micrograms IV, Midazolam 2 mgIV Procedure Description: The patient had risks, benefits and alternatives explained to andgave informed consent. The patient had a stable cardiopulmonary status and judged an adequate candidate for conscious sedation. The [id number] was passed through the anus and advanced to the cecum, identified by appendiceal orifice and ileocecal valve. Thecolonoscopy was performed without difficulty. The patient tolerated the procedure well. The quality of the bowel preparation was good. The ileocecal valve, appendiceal orifice, and rectum were photographed. Complications: No immediate complications. Estimated Blood Loss & Specimen: Estimated blood loss: none. Specimen collected - Yes and sent to Laboratory Findings: Eight sessile polyps were found in the sigmoid colon. The polyps were2 to 3 mm in size. These polyps were removed with a cold snare.Resection was complete, but the polyp tissue was only partially retrieved. The exam was otherwise without abnormality. Impressions/Post-Op Diagnosis: - Eight 2 to 3 mm polyps in the sigmoid colon, removed with a cold snare. Complete resection. Partial retrieval. - The examination was otherwise normal. Recommendation: - Patient has a contact number available for emergencies. The signsand symptoms of potential delayed complications were discussed with the patient. Return to normal activities tomorrow. Written discharge instructions were provided to the patient. - Resume previous diet. - Continue present medications. - Await pathology results. - Repeat colonoscopy is recommended. The colonoscopy date will be determined after pathology results from today's exam become available for review. Moderate Sedation: A time out was performed before the procedure. Moderate (conscious) sedation was administered by the endoscopy nurse and supervised bythe endoscopist. The following parameters were monitored: oxygensaturation, heart rate, blood pressure, EKG, CO2, respiratory rate, adequacy of pulmonary ventilation and reponse to care. Please refer to the patient's medical record flowsheets and nursing notes for moderate sedation details. Total physician intraservice time was 22 minutes. Amadeo Moreno MD 03/30/2023 9:31:48 AM This report has been signed electronically. Note Initiated On: 03/30/2023 7:55 AM Procedure Code(s): --- Professional --- 02539, Colonoscopy, flexible; with removalof tumor(s), polyp(s), or other lesion(s) bysnare technique Diagnosis Code(s): --- Professional --- Z86.010, Personal history of colonicpolyps D12.5, Benign neoplasm of sigmoid colon CPT copyright 2021 [employer] [place] [employer]. All rights reserved. The codes documented in this report are preliminary and upon process control specialist reviewmay be revised to meet current compliance requirements. Scope In: 8:57:26 AM Scope Withdrawal Time 0 hours 17 minutes 19 seconds Scope Out: 9:18:23 AM us Amadeo Moreno MD PROCEDURE ORD Final Res ult * CT ABDOMEN PELVIS WO (02/03/2021 9:48 AM CDT) Anatomical Region Laterality Modality Abdomen, Pelvis, AORTA, LIVER, SPLEEN Computed Tomography 02/03/2021 10:0 5 AM CDT Narrative 02/03/2021 10:05 AM CDT INDICATION: Screening for abdominal aortic aneurysm. TECHNIQUE: CT abdomen and pelvis without contrast. FINDINGS: Moderate atherosclerotic calcification of the aorta and iliac vessels. No evidence of aneurysm or periaortic pathology. No abnormality of the unenhanced gallbladder, liver or bile ducts. Pancreas, spleen and adrenal glands are normal. Single 1.2 cm lymph node in the gastrohepatic ligament, series 2, image 51 is an incidental finding since there is no other retroperitoneal, mesenteric, pelvic or inguinal lymphadenopathy. Unenhanced kidneys are unremarkable. No nephrolithiasis or hydronephrosis. GI tract normal. No bowel wall thickening, inflammation or obstruction. Appendix normal. No free fluid or free air. Bladder, seminal vesicles and prostate are normal. No abdominal wall hernia. Degenerative spine. No lytic or osteoblastic lesions. Impression : 1. Atherosclerotic disease of the abdominal aorta and iliac vessels. No evidence of aneurysm. 2. Remaining CT the abdomen and pelvis negative. Please note that all CT scans at this facility use dose modulation, iterative reconstruction, and/or weight-based dosing when appropriate to reduce radiation dose to as low as reasonably achievable. Dictated by Jose Dolan MD @ Feb 03 2021 10:05AM (Electronically Signed) [email or web address] Procedure Note Johnson Dolan MD - 02/03/2021 INDICATION: Screening for abdominal aortic aneurysm. TECHNIQUE: CT abdomen and pelvis without contrast. FINDINGS: Moderate atherosclerotic calcification of the aorta and iliac vessels. Noevidence of aneurysm or periaortic pathology. No abnormality of the unenhanced gallbladder, liver or bile ducts.Pancreas, spleen and adrenal glands are normal. Single 1.2 cm lymph nodein the gastrohepatic ligament, series 2, image 51 is an incidental findingsince there is no other retroperitoneal, mesenteric, pelvic or inguinallymphadenopathy. Unenhanced kidneys are unremarkable. No nephrolithiasis or hydronephrosis.GI tract normal. No bowel wall thickening, inflammation or obstruction.Appendix normal. No free fluid or free air. Bladder, seminal vesicles and prostate are normal. No abdominal wallhernia. Degenerative spine. No lytic or osteoblastic lesions. Impression : 1. Atherosclerotic disease of the abdominal aorta and iliac vessels. Noevidence of aneurysm. 2. Remaining CT the abdomen and pelvis negative. Please note that all CT scans at this facility use dose modulation,iterative reconstruction, and/or weight-based dosing when appropriate toreduce radiation dose to as low as reasonably achievable. Dictated by Jose Dolan MD @ Feb 03 2021 10:05AM (Electronically Signed) [email or web address] Osmani Redman MD CT Final Re sult * CT CHEST LOW DOSE WO CONTRAST (02/03/2021 9:47 AM CDT) Anatomical Region Laterality Modality CHEST Computed Tomogra phy 02/03/2021 9:56 AM CDT Narrative 02/03/2021 9:56 AM CDT INDICATION: Lung cancer screening TECHNIQUE: CT chest without contrast. COMPARISON: None FINDINGS: Cardiovascular structures: Heart size is normal. Thoracic aorta and main pulmonary artery are normal in caliber. Atherosclerotic calcification of the coronary arteries and thoracic aorta. Mediastinum and dejuan: No sign of mass or significant adenopathy. Thyroid normal. Lungs: Emphysema present in the upper lobes. No pulmonary nodules, mass or consolidation. No endobronchial or tracheal lesions. Pleura and pericardium: No effusions. Chest wall and axilla: No mass or adenopathy. Bones: Degenerative spine. No lytic or osteoblastic lesions Upper abdomen: Unremarkable. IMPRESSION: 1. Pulmonary emphysema predominating in the upper lobes. 2. Lung rads category 1: Negative. No pulmonary nodules. Recommend annual screening with LD CT in 12 months. 3. Atherosclerotic calcification of the coronary arteries and thoracic aorta. Please note that all CT scans at this facility use dose modulation, iterative reconstruction, and/or weight-based dosing when appropriate to reduce radiation dose to as low as reasonably achievable. Dictated by Jose Dolan MD @ Feb 03 2021 9:56AM (Electronically Signed) [email or web address] Procedure Note Johnson Dolan MD - 02/03/2021 INDICATION: Lung cancer screening TECHNIQUE: CT chest without contrast. COMPARISON: None FINDINGS: Cardiovascular structures: Heart size is normal. Thoracic aorta and mainpulmonary artery are normal in caliber. Atherosclerotic calcification ofthe coronary arteries and thoracic aorta. Mediastinum and dejuan: No sign of mass or significant adenopathy. Thyroidnormal. Lungs: Emphysema present in the upper lobes. No pulmonary nodules, mass orconsolidation. No endobronchial or tracheal lesions. Pleura and pericardium: No effusions. Chest wall and axilla: No mass or adenopathy. Bones: Degenerative spine. No lytic or osteoblastic lesions Upper abdomen: Unremarkable. IMPRESSION: 1. Pulmonary emphysema predominating in the upper lobes. 2. Lung rads category 1: Negative. No pulmonary nodules. Recommend annualscreening with LD CT in 12 months. 3. Atherosclerotic calcification of the coronary arteries and thoracicaorta. Please note that all CT scans at this facility use dose modulation,iterative reconstruction, and/or weight-based dosing when appropriate toreduce radiation dose to as low as reasonably achievable. Dictated by Jose Dolan MD @ Feb 03 2021 9:56AM (Electronically Signed) [email or web address] us Osmani Redman MD CT Final Re sult * ANTI HCV (08/04/2016 12:54 PM CDT) HEPATITIS C ANTIBODY Non-Reacti ve Non-Reacti ve 08/04/2016 8:26 PM CDT [facility] Blood BLOOD SPECIMEN / Unknown Venipuncture / Unknown 08/04/2016 12:54 PM CDT 08/04/2016 12:54 PM CDT Narrative [facility] - 08/04/2016 8:26 PM CDT Antibodies to HCV not detected; does not exclude the possibility of exposure to HCV. Osmani Redman MD SEND OUTS Final Re sult [facility] [address] [place] [address], [place] from Last 3 Months or Most Recently Relevant to Health Maintenance Insurance [place] [employer] [place] ONLY MEDICARE PART B HB ONLY [place] [employer] HB ONLY [facility] [employer] Care Teams Oxygen Equipment Preparer Relationship Specialty Start Date End Date Votel, Osmani Angelo MD [address] [place] [address] PCP - General Family Practice 10/31/17
== END 2024-11-18 09:47 | disposition home or self-care (01) ==
LOC: INJ CL 09:47
PROVIDERS: PCP Family Medicine; Visit Provider Family Medicine
DX: M54.16 Radiculopathy, lumbar region (principal); M51.369 Other intervertebral disc degeneration, lumbar region without mention of lumbar back pain or lower extremity pain
CPT/HCPCS: 64483; J1100; Q9966